=== PATIENT | male | born 1980 | race African-American/Black ===

== ENCOUNTER 2019-01-01 04:16 | Emergency (ER) | payer SELFPAY ==
[~2019-01-01] VITALS: Ht 177.8 cm; Wt 81.6 kg
[2019-01-01 04:24] VITALS: BP 144/79
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
[2019-01-01 04:35] VITALS: BP 144/79
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
--- NOTE | 2019-01-01 04:43 | NUR ---
ER DISCHARGE NOTE: Patient is cleared to be discharged per ERMD, pt is aox4, on room air, with stable vital signs. pt was given dc and prescription instructions, pt was able to verbalize understanding, pt id band removed without complications. pt is able to ambulate with steady gait. pt took all belongings. pt left with [employer] for "ok to book." pt vital signs are stable.
== END 2019-01-01 04:47 ==
LOC: EMR 04:34
DX: S80.211A Abrasion, right knee, initial encounter (principal); Y35.893A Legal intervention involving other specified means, suspect injured, initial encounter; Y92.89 Other specified places as the place of occurrence of the external cause; J45.909 Unspecified asthma, uncomplicated
CPT/HCPCS: 99283

== ENCOUNTER 2019-01-01 22:07 | Emergency (ER) | payer SELFPAY ==
[~2019-01-01] VITALS: Ht 177.8 cm; Wt 81.6 kg
[2019-01-01 22:18] VITALS: BP 153/73
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
--- NOTE | 2019-01-01 22:26 | NUR ---
ED Nurse Note: pt dc per ermd order, pt is aox4, pt dc and prescription instructions given pt verablized understaing pt id band removed, pt took all belongings pt is able to ambulate with steady gait, pt left with [facility]
[2019-01-01 22:27] VITALS: BP 153/73
== END 2019-01-01 22:26 ==
LOC: EMR 22:23
DX: S80.211A Abrasion, right knee, initial encounter (principal); Y35.893A Legal intervention involving other specified means, suspect injured, initial encounter; Y92.89 Other specified places as the place of occurrence of the external cause; J45.909 Unspecified asthma, uncomplicated; Z91.018 Allergy to other foods; Z88.0 Allergy status to penicillin; Z91.013 Allergy to seafood; Z04.89 Encounter for examination and observation for other specified reasons
CPT/HCPCS: 99283